=== PATIENT | female | born 1975 | race Caucasian/White ===

== ENCOUNTER → 2017-08-17 | Outpatient (CLI) | payer BC ==
--- NOTE | 2017-08-17 17:19 | US ---
EXAMINATION TYPE: US venous doppler duplex LE RT DATE OF EXAM: 08/17/2017 5:05 PM COMPARISON: NONE CLINICAL HISTORY: pain right lower leg M79.661. Right calf pain and swelling SIDE PERFORMED: Right TECHNIQUE: The lower extremity deep venous system is examined utilizing real time linear array sonog gricel with graded compression, doppler sonography and color-flow sonography. VESSELS IMAGED: External Iliac Vein (EIV) Common Femoral Vein Deep Femoral Vein Greater Saphenous Vein * Femoral Vein Popliteal Vein Small Saphenous Vein * Proximal Calf Veins (* superficial vessels) Right Leg: Appears negative for DVT IMPRESSION: No evidence of deep venous thrombosis in the right leg.
== END | disposition home or self-care (01) ==
LOC: RADUSWWP 16:30
PROVIDERS: ATTEND Physician Assistant
DX: M79.661 Pain in right lower leg (principal)